=== PATIENT | male | born 1960 | race Caucasian/White ===

== ENCOUNTER → 2017-11-18 12:39 | Outpatient (CLI) | payer BC ==
[2011-08-11 09:36] VITALS: BMI 31.2
== END | disposition home or self-care (01) ==
LOC: D.CT 12:39
DX: R10.31 Right lower quadrant pain (principal)

== ENCOUNTER 2019-01-26 15:14 | Emergency (ER) | payer BC ==
[~2019-01-26] VITALS: Ht 182.9 cm; Wt 111.4 kg
[2019-01-26 15:22] VITALS: Ht 182.9 cm; Wt 111.4 kg
[2019-01-26] MEDS ORDERED: PREDNISONE20 MG PO (15:26)
[2019-01-26] MEDS ORDERED: SKELAXIN800 MG PO (18:12)
[2019-01-26] MEDS ORDERED: TORADOL10 MG PO (18:12)
[2019-01-26 18:25] VITALS: BP 148/88
== END 2019-01-26 18:25 | disposition home or self-care (01) ==
LOC: D.ER 15:14
DX: S76.812A Strain of other specified muscles, fascia and tendons at thigh level, left thigh, initial encounter (principal); X58.XXXA Exposure to other specified factors, initial encounter; Y93.89 Activity, other specified; Y92.9 Unspecified place or not applicable

== ENCOUNTER 2019-02-23 16:02 | Observation (INO) | payer BC ==
[~2019-02-23] VITALS: Ht 182.9 cm; Wt 100.0 kg
--- NOTE | ~2019-02-23 | DS ---
PATIENT:JULIANA SORIA :56 MEDICAL RECORD: [id number] DISCHARGE SUMMARY ADMISSION DATE: 02/23/19 DISCHARGE DATE: 02/24/19 DISCHARGE DIAGNOSES: 1. Chest pain. 2. Hypertension. 3. Tachycardia. HOSPITAL COURSE: This is a gentleman with no previous cardiac history, who began developing chest pain. He was also tachycardic, had PVCs, was started on Lopressor 50 mg b.i.d., had resolution of symptomatology, better control of heart rate and blood pressure, discharged home on Lopressor 50 mg b.i.d. We will follow up with [facility] in 1 week and will be set for stress testing with Cardiolite imaging as an outpatient. TRANSINT:[id number] Voice Confirmation ID: [id number] DOCUMENT ID: [id number] ERIC DOS SANTOS MD CC: [id number] DICTATION DATE: 02/24/19 1158 PERIOPERATIVE EDUCATOR: 02/24/192227 DIS IN 02/24/19 [place] [id number] [place] [id number]
[~2019-02-23 16:02] MED LIST: PREDNISONE20 MG PO; SKELAXIN800 MG PO; TORADOL10 MG PO
[2019-02-23 16:26] LABS: BASOPHILS 0.3 % (0-2); EOSINOPHILS 0.6 % (0-7); HEMATOCRIT 43.1 % (42.0-54.0); HEMOGLOBIN 14.9 g/dL (13.5-17.5); IMMATURE GRANULOCYTES 0.3 % (0-5); LYMPHOCYTES 24.5 % (15-50); MCH 29.4 pg (26.0-34.0); MCHC 34.6 g/dL (31.0-37.0); MEAN PLATELET VOLUME 9.1 fL (7.4-10.4); MONOCYTES 9.7 % (2-11); NEUTROPHILS 64.6 % (40-80); PLATELET COUNT 270 10x3/uL (130-400); RBC 5.07 10x6/uL (4.20-6.10); RDW 13.7 % (11.5-14.5)
[2019-02-23 16:38] LABS: APTT 23.3 SECONDS (22.8-39.4); CALC OSMOLALITY 283 mosm/kg (275-300); CALCIUM 8.9 mg/dL (8.5-10.1); CARBON DIOXIDE 31.6 mmol/L (21.0-32.0); CHLORIDE - SERUM 104 mmol/L (98-107); CREATININE - SERUM 0.9 mg/dL (0.6-1.3); GLUCOSE 97 mg/dL (74-106); INR 0.9 (0.85-1.17); POTASSIUM - SERUM 3.7 mmol/L (3.5-5.1); PROTIME 11.7 SECONDS (11.6-15.0); SODIUM 142 mmol/L (136-145); UREA NITROGEN 14 mg/dL (7-18); eGFR NON AFRICAN AMERICAN > 90 mL/min (90-120)
[2019-02-23 16:43] VITALS: BP 155/104
[2019-02-23 17:11] LABS: ALBUMIN 3.7 g/dL (3.4-5.0); ALKALINE PHOSPHATASE 66 U/L (46-116); ALT (SGPT) 56 U/L (10-68); BILIRUBIN - TOTAL 0.49 mg/dL (0.2-1.3); CKMB 1.3 U/L (0.0-3.6); CREATINE KINASE 38 UL (21-232); MAGNESIUM - SERUM 2.1 mg/dL (1.8-2.4); PROTEIN - SERUM 7.4 g/dL (6.4-8.2)
[2019-02-23 17:12] LABS: TROPONIN-I < 0.017 ng/mL (0.000-0.060)
--- NOTE | 2019-02-23 17:24 | NUR ---
REPORT TO MITA GRANER
[2019-02-23 17:33] VITALS: BP 135/88
--- NOTE | 2019-02-23 17:48 | NUR ---
ADMITTED FROM ER. ALERT AND ORIENTED.DENIES ANY PAIN AT PRESENT TIME. LEFT FA SL.TELEMERTY SHOWS ST [address]. SR UP WITH CALL LIGHT IN REACH. WILL MONITOR
--- NOTE | 2019-02-23 19:30 | NUR ---
REPORT AND INITIAL ROUNDS COMPLETED. PT RESTING IN BED WITH FAMILY AT BEDSIDE. ALERT/ORIENTED. SANDWICH TRAY PROVIDED.
[2019-02-23 20:30] VITALS: BP 107/63
--- NOTE | 2019-02-23 22:35 | NUR ---
PT AWAKE WITH C/O HEADACHE/THROBBING. MEDICATED WITH TYLENOL. REMOVED NITRO PATCH. LAST TROPONIN WNL. NEXT TROPONIN SCHEDULED FOR 0500. PT NOW TRYING TO REST.
[2019-02-24 00:30] VITALS: BP 99/62
--- NOTE | 2019-02-24 06:39 | NUR ---
PT RESTING IN BED WITH NO DISTRESS. NO CHANGE FROM INITIAL SHIFT ASSESSMENT. CPOC. REPORT TO ONCOMING SHIFT.
[2019-02-24 06:42] VITALS: BP 119/72
[2019-02-24 07:01] LABS: BASOPHILS 0.5 % (0-2); EOSINOPHILS 1.4 % (0-7); HEMATOCRIT 38.7 % (42.0-54.0); IMMATURE GRANULOCYTES 0.2 % (0-5); LYMPHOCYTES 28.5 % (15-50); MCH 28.7 pg (26.0-34.0); MCHC 33.6 g/dL (31.0-37.0); MCV 85.4 fL (80.0-100.0); MEAN PLATELET VOLUME 9.5 fL (7.4-10.4); MONOCYTES 10.3 % (2-11); NEUTROPHILS 59.1 % (40-80); PLATELET COUNT 233 10x3/uL (130-400); RBC 4.53 10x6/uL (4.20-6.10); RDW 13.9 % (11.5-14.5); WBC 5.8 10x3/uL (4.8-10.8)
[2019-02-24 07:08] LABS: ALBUMIN 3.1 g/dL (3.4-5.0); ALKALINE PHOSPHATASE 56 U/L (46-116); BILIRUBIN - TOTAL 0.58 mg/dL (0.2-1.3); CALC OSMOLALITY 280 mosm/kg (275-300); CALCIUM 8.4 mg/dL (8.5-10.1); CARBON DIOXIDE 25.7 mmol/L (21.0-32.0); CHLORIDE - SERUM 106 mmol/L (98-107); CREATININE - SERUM 0.9 mg/dL (0.6-1.3); GLUCOSE 105 mg/dL (74-106); PROTEIN - SERUM 6.1 g/dL (6.4-8.2); SODIUM 140 mmol/L (136-145); TROPONIN-I < 0.017 ng/mL (0.000-0.060); UREA NITROGEN 17 mg/dL (7-18); eGFR NON AFRICAN AMERICAN > 90 mL/min (90-120)
[2019-02-24 07:09] LABS: ALT (SGPT) 36 U/L (10-68)
--- NOTE | 2019-02-24 07:10 | NUR ---
REPORT RECEVIED FROM GOLF CART MAKER AND PATIENT CARE ASSUMED. PATIENT LAYING IN BED ON BACK WITH AWAKE, ALERT AND ORIENTED X 4. PATIENT IS STABLE AND VSS. PATIENT DENIES ANY NEEDS OR PAIN. WILL CONTINUE WITH PLAN OF CARE. SR UP X 2 BED IN LOW POSITION AND CALL LIGHT IN REACH.
[2019-02-24 08:06] VITALS: BP 137/82
[2019-02-24 10:23] VITALS: BP 132/82; Ht 182.9 cm; Wt 100.0 kg
--- NOTE | 2019-02-24 11:20 | NUR ---
PATIENT RESTING COMFORTBLY IN BED. PATIENT DENIES ANY NEEDS OR PAIN. AT BS. WILL CONTINUE TO MONITOR. SR UP X 2 BED IN LOW POSITION AND CALL LIGHT IN REACH.
[2019-02-24 11:33] VITALS: BP 142/93
--- NOTE | 2019-02-24 11:55 | HP ---
PATIENT: JULIANA DAVIS MEDICAL RECORD: [id number] ACCOUNT: [id number] LOCATION:[address] : 56 ADMISSION DATE: 02/23/19 PCP: MARTINE PRYOR DO HISTORY AND PHYSICAL EXAMINATION ADMITTING DIAGNOSES: 1. Chest pain. 2. Dysrhythmia - PVCs. 3. Dizziness. HISTORY OF PRESENT ILLNESS: Mr. Davis last week has had dizziness and he feels PVCs. He does have frequent PVCs on an EKG. Today, he developed chest discomfort, typical anginal discomfort, a dull aching heaviness, pressure-like sensation around the anterior chest. He presents to the ER with that. He is currently pain free. PHYSICAL EXAMINATION: CONSTITUTIONAL/GENERAL APPEARANCE: Well nourished, well developed, appears stated age. EYES: Lids and conjunctivae noninjected. No discharge. No pallor. ENT: Lips within normal limit. No cyanosis. No pallor. NECK: Carotid arteries, bilateral normal upstroke. No bruits. No thrills. No jugular venous pressure or distention. CERVICAL LYMPH NODES: Nontender. Nonenlarged. THYROID: Not enlarged. No nodules. CARDIOVASCULAR: Precordial exam, nondisplaced. No heaves or pericardial thrills. Rate and rhythm, regular. Heart sounds, normal S1, normal S2. No S3, no gallop, no rub. Systolic murmur, not heard. Diastolic murmur, not heard. RESPIRATORY: Respiratory effort, unlabored. Normal curvature. No thoracic deformity. No chest wall tenderness. Percussion, resonant. Auscultation, clear. No wheezes, no rales, no rhonchi. ABDOMEN: Soft, nondistended, nontender. No abdominal pain, no vomiting and normal appetite. MUSCULOSKELETAL: No joint tenderness, normal gait, normal tone. SKIN: Warm and dry. IMPRESSION: Chest pressure. At this time, we will get serial enzymes, see him in the morning. If he continues to have chest pain, we will risk stratify with stress testing, Cardiolite imaging. If troponin does become positive, we will consider coronary angiography. TRANSINT:[id number] Voice Confirmation ID: [id number] DOCUMENT ID: [id number] HISTORY AND PHYSICAL [id number] JULIANA DAVISERIC KUMAR MD at 1155 CC: [id number] DICTATION DATE: 02/23/19 1627 PRODUCTION OR PLANT ENGINEER: 02/23/19 1701 ADM IN [place] [id number] [place] [id number]
--- NOTE | 2019-02-24 12:21 | NUR ---
OFFERED FLU SHOT, PT DECLINED.
[2019-02-24] MEDS ORDERED: METOPROLOL TART50 MG PO (12:25)
--- NOTE | 2019-02-24 13:07 | NUR ---
PATIENT IS STABLE AND VSS. PATIENT DENIES ANY NEEDS OR PAIN. ORDERS RECEIVED FOR DC. WRITTEN AND VERBAL INSTRUCTIONS GIVEN TO PATIENT. PATIENT VERBALIZED UNDERSTANDING AND SIGNED PAPERWORK. IV DCD WITHOUT DIFFICULTY WITH ENTIRE CATHETER INTACT AND PRESSURE DRESSING APPLIED. PATIENT IS DCD HOME FOR SELF CARE. PATIENT TO FRONT DOOR VIA WC ACCOMPANIED BY HOSPITAL PERSONNEL. PATIENT TO PRIVATE VEHICLE DRIVEN BY SPOUSE.
== END 2019-02-24 13:13 | disposition home or self-care (01) ==
LOC: D.ER 16:02 → D.M2 16:23 → OBSVTIME 17:30 → D.M2 02-24 13:13
PROVIDERS: Family Medicine; ADMIT Internal Medicine Interventional Cardiology; ATTEND Internal Medicine Interventional Cardiology
DX: R07.9 Chest pain, unspecified (principal); I10 Essential (primary) hypertension; R00.0 Tachycardia, unspecified; R42 Dizziness and giddiness

== ENCOUNTER → 2019-04-30 11:16 | Outpatient (CLI) | payer BC ==
[2019-02-24 10:23] VITALS: BMI 29.9
== END | disposition home or self-care (01) ==
LOC: D.CT 11:16
PROVIDERS: ATTEND Internal Medicine Gastroenterology
DX: R10.9 Unspecified abdominal pain (principal); R11.2 Nausea with vomiting, unspecified; R93.819 Abnormal radiologic findings on diagnostic imaging of unspecified testicle; M79.3 Panniculitis, unspecified; R10.84 Generalized abdominal pain

== ENCOUNTER → 2019-08-09 09:20 | Outpatient (CLI) | payer BC ==
[2019-02-24 10:23] VITALS: BMI 29.9
[~2019-08-09 09:20] MED LIST changes: +METOPROLOL TART50 MG PO
== END | disposition home or self-care (01) ==
LOC: D.CT 09:20
PROVIDERS: ATTEND Clinical Nurse Specialist Adult Health
DX: M79.3 Panniculitis, unspecified (principal)